=== PATIENT | female | born 1965 | race Caucasian/White ===

== ENCOUNTER 2016-06-06 12:56 | Day surgery (SDC) | payer BC ==
[2016-05-26 12:43] LABS: BASOPHILS 0.1 %; BASOPHILS ABSOLUTE 0.01 10/3/uL (0.0-0.16); EOSINOPHILS 1.5 %; HEMATOCRIT 39.8 % (36.0-48.0); HEMOGLOBIN 13.4 g/dL (12.0-16.0); IMMATURE GRANULOCYTES 0.1 %; IMMATURE GRANULOCYTES ABSOLUTE 0.01 10/3/uL (0.0-0.11); LYMPHOCYTES 28.2 %; LYMPHOCYTES ABSOLUTE 1.94 10/3/uL (0.67-4.30); MANUAL DIFF NO %; MEAN CORPUS HGB CONC 33.7 g/dL (32.0-36.0); MEAN CORPUSCULAR HEMOGLOB 31.4 pg (26.0-34.0); MEAN CORPUSCULAR VOLUME 93.2 fL (80-100); MEAN PLATELET VOLUME 9.8 fL (9.2-13.0); MONOCYTES 8.9 %; MONOCYTES ABSOLUTE 0.61 10/3/uL (0.21-1.20); NEUTROPHILS 61.2 %; NEUTROPHILS ABSOLUTE 4.22 10/3/uL (2.02-8.40); PLATELET COUNT 264 10/3/uL (150-400); RBC DISTRIBUTION WIDTH 13.9 % (12.0-16.0); RED CELL COUNT 4.27 10/6/uL (4.0-5.6); WHITE BLOOD CELLS 6.9 10/3/uL (4.5-10.5)
--- NOTE | ~2016-06-06 | OP ---
Record Of Operation [facility] [address] [place]. [address] NAME: DENIS FELIZ : 61 STATUS : [facility]#: [id number] AGE: 50 ADM/REG DATE : 06/06/16 MR#: [id number] REPORT SERV DATE: 06/07/16 DICTATED BY: PERICO ELIAS DATE: 06/06/16 REPORT STATUS : Draft TRANSCRIBED BY: MODYoung DATE: 06/06/16 DATE OF PROCEDURE: 06/06/2016 PREOPERATIVE DIAGNOSIS: Multinodular goiter with large nodule in the right lobe of the thyroid gland. POSTOPERATIVE DIAGNOSIS: Multinodular goiter with large nodule in the right lobe of the thyroid gland. PROCEDURE: Right thyroid lobectomy. SURGEON: Perico Elias M.D. ANESTHESIA: General endotracheal. ESTIMATED BLOOD LOSS: 125 mL. INTRAOPERATIVE FLUIDS: 1 liter of crystalloid. INTRAOPERATIVE FLUIDS: Grossly enlarged right lobe of the thyroid gland with multiple nodules. There was a large nodule on the posterior aspect of the thyroid gland, which impeded dissection of the recurrent laryngeal nerve; however, was able to dissect this nerve to its entry into the larynx intact. This nerve did stimulate well at the end of the operative procedure. There was a small area of bloody oozing over the recurrent laryngeal nerve at its entry point into the larynx. With concern for injuring the nerve, I opted not to perform additional cautery in this area. Surgicel was applied to the vessel and a neck drain was placed. OPERATIVE PROCEDURE: The patient was identified in the holding room and transported the operating room. In the operating room, the Patient was placed on the operating table in the supine position. Following induction of anesthesia, the patient was intubated without difficulty. The patient was intubated with an endotracheal tube to accommodate the NIM-2 stimulator. A proposed incision was diagrammed in a lower neck skin crease in a horizontal fashion. This area was then injected with 0.25% Marcaine with 1:200,000 epinephrine. The patient was then prepped and draped in a sterile fashion. An incision was created through the aforementioned area of the neck. Dissection was carried down to the level of the platysma muscle. The platysma muscle was sharply divided. Superior and inferior subplatysmal flaps were developed. The strap muscles were midline and retracted to laterally to expose the thyroid gland. Dissection was carried around the periphery of the thyroid gland on the right side for exposure of the right lobe of the gland. Dissecting inferiorly, I was unable to clearly identify the recurrent laryngeal nerve at this point. I did opt to proceed with dissection superiorly to help mobilize the gland. Superiorly, the thyroid pedicle was identified and suture ligated. Dissection was then carried along the periphery of the gland, dividing small feeding veins passing onto the lateral aspect of the gland. With this degree of mobilization, I was now able to retract the gland to visualize the area inferior to the right pole of the thyroid gland. Dissecting in this area, I was Record Of Operation [address] [place]. [address] NAME: DENIS FELIZ : 61 STATUS : [facility]#: [id number] AGE: 50 ADM/REG DATE : 06/06/16 MR#: [id number] REPORT SERV DATE: 06/07/16 DICTATED BY: PERICO ELIAS DATE: 06/06/16 REPORT STATUS : Draft TRANSCRIBED BY: MODL DATE: 06/06/16 able to identify the recurrent laryngeal nerve on the right side. This was dissected to the inferior aspect of the thyroid gland. With the nerve visualized, the remaining soft tissue attachments around the periphery of the thyroid gland were divided as the thyroid gland was rotated medially. During this dissection, tissue appearing consistent with the right inferior parathyroid gland was identified and preserved. With additional mobilization, the thyroid gland was rotated further medially. Once again, dissection was complicated by large nodule in the posterior aspect of the thyroid gland; however, with continued piecemeal dissection, I was able to dissect the recurrent laryngeal nerve to its entry point into the larynx. The remaining attachments of Stephenson's ligament and the broad ligament were divided as the thyroid gland was rotated across the midline. The thyroid gland was divided between the thyroid isthmus and left lobe of the thyroid gland. The cut edge of the thyroid gland was oversewn with a 3-0 Vicryl suture. The tissue was sent to surgical pathology for histologic evaluation. A frozen section was performed on the gland, which demonstrated findings suggestive of a multinodular goiter. She did have a calcified nodule for which further evaluation would be determined, pending the final histology after decalcification. The right neck was irrigated. There was a small oozing vessel identified superior to the recurrent laryngeal nerve at its entry point into the laryngeal musculature. Gentle cautery was performed on this vessel avoiding contact with the recurrent laryngeal nerve using the bipolar cautery. The recurrent laryngeal nerve did stimulate well following this cauterization. There was still a small amount of oozing from this area. With concern for injury to the recurrent laryngeal nerve, I opted not to perform additional cautery. A piece of Surgicel was placed over the area of the vessel with control of bleeding. With concern for persistent oozing from this area, I did opt to place a neck drain. A #10 round drain was placed to the neck. The strap muscles were then reapproximated in the midline with interrupted 3-0 Vicryl sutures. Similar suture material was used to approximate the platysma layer. A running 5-0 Prolene suture was placed in a subcuticular fashion for skin closure. Steri-Strips were applied to the wound. The patient was subsequently awakened from anesthesia, extubated from the operating room, transported to recovery room in good condition. The patient tolerated the procedure well. There were no apparent complications. Specimens include right lobe of the thyroid gland with thyroid isthmus. TF/MODL Perico Elias M.D. / [id number] CC: Jake Herrera
[~2016-06-06 12:56] MED LIST: ALLEGRA180 PO; D 5000 PO; DITROPAN XL15 MG PO; FIBER PO; FISH OIL1200 MG PO; FLONASE NAS; FOSAMAX70 MG PO; IMITREX100 MG PO; LOTENSIN HCT1 TA1 PO; MULTIPLE VIT PO; PROBIOTIC PO; PROVERA 2.5 MG2.5 MG PO; TOPXL25 PO; TYLENOL ARTHRITIS PO; VITAMIN B-121000 MC1 SL; VITC500 PO; XARELTO20 MG PO
[2016-06-06 14:04] LABS: BUN (BLOOD UREA NITROGEN) 15 MG/DL (6-23); CALCIUM, SERUM 8.6 MG/DL (8.5-10.4); CHLORIDE, SERUM 107 MMOL/L (96-112); CO2 (CARBON DIOXIDE) 28 MMOL/L (24-34); CREATININE 1.04 MG/DL (0.55-1.02); GFR AFRICAN AMERICAN 72 ML/MIN (>=60); GFR NON AFRICAN AMERICAN 62 ML/MIN (>=60); GLUCOSE, SERUM 90 MG/DL (60-99); SODIUM, SERUM 142 MMOL/L (135-148)
[2016-06-06] MEDS ORDERED: ADVAIR115P INH (14:10)
[2016-06-06] MEDS ORDERED: PROAIR HFA INH (14:11)
[2016-06-06] MEDS ORDERED: 8 HOUR650 MG PO (14:16)
== END 2016-06-06 20:58 | disposition home or self-care (01) ==
LOC: SDC 12:56
PROVIDERS: Otolaryngology
PROC: 0GBH0ZZ Excision of Right Thyroid Gland Lobe, Open Approach (ICD-10-PCS; 2016-06-06)
PROC: 0GBH0ZZ Excision of Right Thyroid Gland Lobe, Open Approach (ICD-10-PCS; principal; 2016-06-06 14:30)
DX: E04.2 Nontoxic multinodular goiter (principal); E66.01 Morbid (severe) obesity due to excess calories; I10 Essential (primary) hypertension; I48.91 Unspecified atrial fibrillation; G47.33 Obstructive sleep apnea (adult) (pediatric); Z88.8 Allergy status to other drugs, medicaments and biological substances; E78.00 Pure hypercholesterolemia, unspecified; M81.0 Age-related osteoporosis without current pathological fracture; M19.90 Unspecified osteoarthritis, unspecified site; Z98.890 Other specified postprocedural states; Z79.899 Other long term (current) drug therapy; Z79.51 Long term (current) use of inhaled steroids
CPT/HCPCS: 80048; 85025; 88307; 88311; A9270-GY; J0330; J0690; J2250; J2405; J2550; J3010